=== PATIENT | male | born 2000 | race Caucasian/White ===

== ENCOUNTER 2022-06-24 12:00 | Emergency (ER) | payer OTHER, SELFPAY ==
--- NOTE | ~2022-06-24 | CT_ITS ---
EXAMINATION: CT brain wo con DATE: 06/24/2022 12:46 INDICATION: New onset seizure TECHNIQUE: Computed tomography (CT) of the head was performed without intravenous contrast. Sagittal and coronal reconstructions were performed. The mA was adjusted according to patient size. Iterative reconstruction technique was employed. The dose-length product was 605.33 mGy-cm. COMPARISON: None FINDINGS: No acute intracranial hemorrhage, acute infarction or abnormal extra axial fluid collection. Ventricl es are normal and symmetric. No mass/mass effect. Moderate mucosal thickening and dependently layerin g fluid/mucus in the right maxillary sinus. The orbits and mastoid air cells are normal. IMPRESSION: 1. Normal brain. No acute intracranial process. 2. Right maxillary sinus disease. Reviewed, dictated and finalized at location A.
[2022-06-24 12:01] VITALS: BP 137/84; PULSE 89; RESP 18; TEMP 36.8; O2SAT 100
[2022-06-24 12:09] VITALS: PULSE 81
--- NOTE | 2022-06-24 12:19 | ECG_ITS ---
Measurements Intervals [place] Rate: 68 P: 45 MT: 146 QRS: 66 QRSD: 93 T: 35 QT: 381 QTc: 407 Interpretive Statements SINUS RHYTHM WITH SINUS ARRHYTHMIA ST ELEVATION IN DIFFUSE LEADS- PROBABLY EARLY REPOLARIZATION BORDERLINE ECG NO PREVIOUS ECG AVAILABLE FOR COMPARISON Electronically Signed On 06-24-2022 13:28:28 CDT by Álvaro Lewis D.O.
--- NOTE | 2022-06-24 12:35 | ED.GENADULT ---
HPI - General Adult General Chief complaint: Seizure Stated complaint: seizure Time Seen by Provider: 06/24/22 12:15 History of Present Illness HPI narrative: Patient is a 21-year-old male with known seizure history here for evaluation after seizure-like activity today. Patient was in his usual state of health this morning, getting his tires changed this morning when according to staff at the electrical mechanic patient fell down and began to have 2 to 3 minutes of seizure-like activity. Patient denies any history of seizures. He is amnestic to this event and did lose consciousness. He states that he currently feels fatigued but denies any shoulder pain, headache, fevers, visual changes. Reports marijuana use but no other drug or alcohol use. Related Data Allergies Allergy/AdvReac Type Severity Reaction Status Date / Time No Known Allergies Allergy Unverified 06/24/22 12:10 Review of Systems Review of Systems: Gen: Reports seizure-like activity Eyes: Denies eye pain or visual change ENT: Denies congestion Respiratory: Denies shortness of breath or cough CV: Denies chest pain or palpitations GI: Denies abdominal pain nausea, emesis or diarrhea : denies burning, urgency, frequency or hematuria Musculoskeletal: Denies back pain or muscle pain Neuro: Denies numbness, tingling, weakness or focal weakness Skin: Denies rash Except as documented, all other systems reviewed and negative PMFSH Past Medical History Medical History Anxiety IBS (irritable bowel syndrome) Surgical History Surgical History [place] teeth removed Family History Family History (Updated 01/21/22 @ 14:06 by Daniella Johnson [facility]) Grandparent Hypertension Family history of cardiovascular disease Family history of congestive heart failure Lung cancer Father Hypertension Depression Heart disease Social History Social History Smoking status: Former smoker Smoking end date: 04/04/18 Alcohol intake: current Exam Narrative: APPEARANCE: Well appearing, no pain in distress, well-nourished. Head: Normocephalic and atraumatic. EYES: PERRLA/EOMI, conjunctivae clear NOSE: No nasal drainage EARS: External ear normal in appearance THROAT: No tongue laceration noted. Oropharynx is clear. Mucous membranes are moist. NECK: Supple. No adenopathy, no masses. RESPIRATORY: Airway patent, respirations nonlabored. Clear to auscultation bilaterally, no rales, rhonchi, wheezing. CARDIOVASCULAR: Regular rate and rhythm without murmurs, rubs, or gallops. ABDOMINAL: Normoactive bowel sounds. Soft, nontender, nondistended. No rebound tenderness or guarding. MUSCULOSKELETAL: Extremities are warm and well-perfused. Moves all extremities well. No edema. NEURO: Normal speech. No focal neurologic deficits. SKIN: Skin is warm and dry. No rashes. PSYCHIATRIC: Normal affect/mood. Course Vital Signs Vital signs: Vital Signs Temperature 98.3 F 06/24/22 12:01 Pulse Rate 89 06/24/22 12:01 Respiratory Rate 18 06/24/22 12:01 Blood Pressure 137/84 06/24/22 12:01 Pulse Oximetry 100 06/24/22 12:01 Oxygen Delivery Room Air 06/24/22 12:01 Temperature 98.3 F 06/24/22 12:01 Pulse Rate 57 L 06/24/22 14:08 Respiratory Rate 16 06/24/22 14:08 Blood Pressure 112/73 06/24/22 14:08 Pulse Oximetry 100 06/24/22 14:08 Oxygen Delivery Room Air 06/24/22 12:09 Medical Decision Making MDM Narrative Medical decision making narrative: 21-year-old male here for evaluation after several minutes of seizure-like activity witnessed today without a history of seizure disorder. No tongue laceration or incontinence of urine, no nuchal rigidity or fever. Reports marijuana but denies any other drug or alcohol use. Patient is nontoxic appearing, has no tongue laceration, obvious head trauma, tenderness to palpation of either
[2022-06-24 12:57] LABS: Alanine Aminotransferase 16 U/L (6-50); Alkaline Phosphatase 55 U/L (38-126); Anion Gap 10 mmol/L (8-16); Aspartate Amino Transferase 22 U/L (17-59); Bilirubin,Total 0.7 mg/dL (0.2-1.3); Blood Urea Nitrogen 19 mg/dL (9-20); Calcium 9.2 mg/dL (8.4-10.2); Carbon Dioxide 24 mmol/L (22-30); Chloride 105 mmol/L (98-107); Estimated CRCL calculation 123 ml/min; Estimated Glomerular Filt Rate > 60; Glucose 141 mg/dL (65-110); Magnesium 2.3 mg/dL (1.6-2.3); Potassium 4.9 mmol/L (3.4-5.0); Sodium 139 mmol/L (137-145)
[2022-06-24 13:00] LABS: Basophils Percent Auto 1.1 % (0.2-1.2); Eosinophils Absolute Auto 0.1 K/mm3 (0-0.3); Eosinophils Percent Auto 1.6 % (0-4.4); Hematocrit 43.9 % (42.0-52.0); Hemoglobin 14.8 g/dL (14.0-18.0); Immature Granulocyte Absolute 0.02 K/mm3 (0.00-0.031); Immature Granulocyte Percent A 0.5 % (0-0.5); Lactic Acid Reflex 5.1 mmol/L (0.7-2.0); Lymphocytes Absolute Auto 1.38 K/mm3 (0.9-3.2); Lymphocytes Percent Auto 36.6 % (18.3-44.2); Mean Corpuscular HGB Conc 33.7 g/dl (32-36); Mean Corpuscular Hemoglobin 30.8 pg (26-34); Mean Corpuscular Volume 91.3 fl (80-100); Mean Platelet Volume 10.3 fl (7.4-10.4); Monocytes Absolute Auto 0.3 K/mm3 (0.1-0.6); Monocytes Percent Auto 6.9 % (2.6-8.5); Neutrophils Percent Auto 53.3 % (45.5-73.1); Platelet Count Result 208 k/mm3 (150-375); Red Blood Count 4.81 M/mm3 (4.6-6.20); Red Cell Distribution Width 12.4 % (11.5-14.5); White Blood Count 3.8 K/mm3 (4.5-10.0)
[2022-06-24 13:22] VITALS: BP 131/92; PULSE 71; RESP 18; O2SAT 100
[2022-06-24 13:30] LABS: Appearance Urine Cloudy (Clear); Bacteria Urine None Seen /hpf; Bilirubin Urine Negative (Negative); Blood Urine Trace (Negative); Color Urine Yellow (Yellow); Glucose Urine UA Negative (Negative); Ketones Urine Trace mg/dL (Negative); Leukocyte Esterase Ur Trace LEU/UL (Negative); Nitrate Urine Negative (Negative); Protein Urine 2+ mg/dL (Negative); RBC Urine 0-2 /hpf (0-2); Specific Grav Ur 1.019 (1.001-1.035); Squamous Epithelial Cell Urine None seen /hpf (Few); Urobilinogen Urine 0.2 mg/dL (<2.0); pH Urine 5.5 (5.0-9.0)
[2022-06-24 13:33] LABS: Add Urine Microscopic? YES
[2022-06-24 13:46] LABS: Amphetamine Screen Urine Negative (Negative); Barbiturate Screen Urine Negative (Negative); Benzodiazepines Screen Urine Negative (Negative); Cannabinoid Screen Urine Positive (Negative); Cocaine Screen Urine Negative (Negative); Methadone Screen Urine Negative (Negative); Opiate Screen Urine Negative (Negative); Phencyclidine Screen Urine Negative (Negative)
[2022-06-24 14:08] VITALS: BP 112/73; PULSE 57; RESP 16; O2SAT 100
[2022-06-24] MEDS: ONDANSETRON INJ 4 MG/2 ML VIAL IV PUSH (14:08)
[2022-06-24] MEDS: levETIRAcetam 1000MG/NACL100ML 1,000 MG/100 ML BAG 400 MG IVPB (14:22)
[2022-06-24 15:42] LABS: Reflex Lactic Acid Yes or No Add Lactic
== END 2022-06-24 14:57 | disposition home or self-care (01) ==
PROVIDERS: Emergency Provider Physician Assistant
DX: R56.9 Unspecified convulsions (principal); F41.9 Anxiety disorder, unspecified
CPT/HCPCS: 36415; 70450; 80053; 80307; 81001; 83605; 83735; 85025; 87086; 93005; 96365; 96375; 99284; J1953; J2405

== ENCOUNTER → 2022-08-09 08:40 | Outpatient (CLI) | payer OTHER, SELFPAY ==
--- NOTE | ~2022-08-09 | MR_ITS ---
EXAMINATION: MR brain/brain stem wo con DATE: 08/09/2022 09:22 INDICATION: Unspecified convulsions. TECHNIQUE: Magnetic resonance imaging (MRI) of the brain and brainstem was performed without intraven ous contrast. COMPARISON: Head CT 06/24/2022 FINDINGS: There is no intracranial hemorrhage, acute infarction, or abnormal intracranial mass lesion . The hippocampi are normal and symmetric. The ventricles are normal in size. There is near complete opacification of right maxillary sinus and the anterior right ethmoid sinuses. The orbits are normal. The mastoid air cells are normal. IMPRESSION: 1. Normal brain. 2. Chronic sinusitis. Reviewed, dictated and finalized at location A.
== END ==
PROVIDERS: PCP Psychiatry & Neurology Neurology; Visit Provider Psychiatry & Neurology Neurology
DX: R56.9 Unspecified convulsions (principal); J32.9 Chronic sinusitis, unspecified
CPT/HCPCS: 70551

== ENCOUNTER 2022-08-09 10:53 | Outpatient (CLI) | payer OTHER, SELFPAY ==
--- NOTE | 2022-08-10 10:55 | WPDNEUROLOGY ---
Neurology EEG Report General Information Date of Study: 08/09/22 TEST Routine EEG DIAGNOSIS Seizure CONDITION OF RECORDING Awake, drowsy EEG NUMBER [id number] CLINICAL HISTORY Patient reports a couple of weeks ago he became nauseous and sweaty, then lost consciousness. Witness reports that he was convulsing. No bowel or bladder incontinence. No prior history of seizures. EEG DESCRIPTION During the awake state with eyes closed the background consists of 10 Hz posterior dominant rhythm which attenuates appropriately with eye opening. The recording is continuous. There is a well developed anterior-posterior gradient. No significant asymmetries of background activities are noted. With drowsiness there is waxing and waning of the dominant rhythm with eventual replacement by a mixture of beta, alpha, and theta activity. Patient does not enter stage II sleep. There are no epileptiform discharges or seizures during this recording. Photic stimulation did not elicit any abnormal photoparoxysmal response. IMPRESSION This is a normal routine EEG recorded in awake and drowsy states. There are no electrographic seizures identified, nor are there any epileptiform discharges. Please note that a normal EEG cannot exclude a seizure disorder. Clinical correlation is recommended.
== END 2022-08-09 10:54 | disposition home or self-care (01) ==
PROVIDERS: PCP Psychiatry & Neurology Neurology; Visit Provider Psychiatry & Neurology Neurology
DX: R56.9 Unspecified convulsions (principal)
CPT/HCPCS: 95816